=== PATIENT | female | born 1965 | race African-American/Black ===

== ENCOUNTER 2023-01-02 11:35 | Observation (INO) | payer OTHER ==
[~2023-01-02] VITALS: Ht 162.6 cm; Wt 79.4 kg
[2023-01-02] VITALS (7 sets, daily range): BP systolic 137–158; BP diastolic 77–98; PULSE 71–86; RESP 17–20; TEMP 97.1–99.9; O2SAT 95–100
[2023-01-02 12:10] LABS: BASOPHILS % 0.5 % (0.0-1.0); EOSINOPHILS % 0.2 % (0.0-6.0); HEMATOCRIT 39.9 % (34.2-44.1); HEMOGLOBIN 13.6 g/dL (12.0-16.0); LYMPHOCYTES # (AUTO) 1.2 (1.0-3.2); LYMPHOCYTES % 14.4 % (18.0-39.1); MEAN CORPUSCULAR HEMOGLOBIN 28.4 pg (28-32); MEAN CORPUSCULAR HGB CONC 34.1 g/dL (31-35); MEAN CORPUSCULAR VOLUME 83.3 fL (81-99); MONOCYTES # (AUTO) 0.6 (0.2-0.8); MONOCYTES % 7.5 % (4.4-11.3); NEUTROPHILS # (AUTO) 6.5 (2.1-6.9); PLATELET COUNT 158 x10e3/uL (140-360); RED BLOOD COUNT 4.79 x10e6/uL (3.6-5.1); RED CELL DISTRIBUTION WIDTH 13.9 % (11.7-14.4)
[2023-01-02 12:25] LABS: INR 0.97; PROTHROMBIN TIME 13.4 seconds (11.9-14.5)
[2023-01-02 12:26] LABS: PARTIAL THROMBOPLASTIN TIME 30.1 seconds (23.8-35.5)
[2023-01-02 12:35] LABS: ALANINE AMINOTRANSFERASE 28 IU/L (0-55); ALBUMIN 3.4 g/dL (3.5-5.0); ALBUMIN/GLOBULIN RATIO 0.7 (0.8-2.0); ALKALINE PHOSPHATASE 57 IU/L (40-150); ANION GAP 13.9 mmol/L (8-16); BLOOD UREA NITROGEN 11 mg/dL (7-26); BUN/CREATININE RATIO 13 (6-25); CALCIUM 9.2 mg/dL (8.4-10.2); CARBON DIOXIDE 27 mmol/L (22-29); CHLORIDE 98 mmol/L (98-107); CREATINE KINASE 92 IU/L (29-168); CREATININE, SERUM 0.82 mg/dL (0.57-1.11); GLUCOSE 137 mg/dL (74-118); LIPASE 25 U/L (8-78); SODIUM 136 mmol/L (136-145)
[2023-01-02 12:36] LABS: POTASSIUM 2.9 mmol/L (3.5-5.1)
[2023-01-02 13:17] LABS: CLARITY,URINE CLOUDY (CLEAR); COLOR,URINE YELLOW (YELLOW); LEUKOCYTE ESTERASE ,URINE LARGE (NEGATIVE)
[2023-01-02 13:18] LABS: KETONES,URINE NEGATIVE (NEGATIVE); NITRITE,URINE POSITIVE (NEGATIVE); PROTEIN,URINE DIPSTICK 2+ (NEGATIVE); URINE UROBILINOGEN 0.2 mg/dL (0.2 - 1)
[2023-01-02 13:35] LABS: WBC,URINE (MAN) >50 /HPF (0-5)
[2023-01-02 13:36] LABS: BACTERIA,URINE MANY /HPF; EPITHELIAL CELLS,URINE FEW /LPF
[2023-01-02] MEDS ORDERED: POTASSIUM CHLORIDE 20 MEQ TAB CR PO ONE (14:00)
[2023-01-02] MEDS: SODIUM CHLORIDE 0.9% 1000ML 1,000 ML IV SCH ×2 (17:13→22:15)
[2023-01-02] MEDS ORDERED: NIFEDIAC CC60 MG PO (17:30)
[2023-01-02] MEDS ORDERED: LOSARTAN POTAS100 MG PO (17:30)
[2023-01-02] MEDS ORDERED: CHLORTHALIDONE25 MG PO (17:30)
[2023-01-02] MEDS ORDERED: ASPIRIN81 MG PO (17:30)
[2023-01-02] MEDS ORDERED: MELOXICAM7.5 MG PO (17:30)
[2023-01-02] MEDS ORDERED: PRAVASTATIN SOD40 MG PO (17:30)
[2023-01-02] MEDS ORDERED: MELOXICAM 7.5 MG TAB PO PRN (18:45)
[2023-01-02] MEDS ORDERED: POLYETHYLENE GLYCOL 3350 17 GM PACK PO ONE (19:30)
[2023-01-02] MEDS ORDERED: FAMOTIDINE 20 MG TAB PO PRN (20:15)
[2023-01-02] MEDS ORDERED: MELATONIN 5 MG TABLET PO PRN (20:15)
[2023-01-02] MEDS ORDERED: ACETAMINOPHEN 325 MG TAB PO PRN (20:15)
[2023-01-02] MEDS ORDERED: SIMVASTATIN 20 MG TAB PO SCH (21:00)
[2023-01-02] MEDS ORDERED: NIFEDIPINE CR 30 MG TAB PO ONE (23:15)
[2023-01-02] MEDS ORDERED: LOSARTAN POTASSIUM 100 MG TAB PO ONE (23:15)
[2023-01-03] VITALS (7 sets, daily range): BP systolic 99–163; BP diastolic 72–89; PULSE 60–80; RESP 16–18; TEMP 97.5–99.3; O2SAT 96–100
[2023-01-03] MEDS: ACETAMINOPHEN 325 MG TAB PO PRN ×2 (02:34→15:43)
[2023-01-03 05:58] LABS: BASOPHILS # (AUTO) 0.1 (0.0-0.1); BASOPHILS % 0.7 % (0.0-1.0); EOSINOPHILS # (AUTO) 0.1 (0.0-0.4); EOSINOPHILS % 0.7 % (0.0-6.0); HEMATOCRIT 37.9 % (34.2-44.1); HEMOGLOBIN 12.9 g/dL (12.0-16.0); LYMPHOCYTES # (AUTO) 1.4 (1.0-3.2); LYMPHOCYTES % 19.2 % (18.0-39.1); MEAN CORPUSCULAR HEMOGLOBIN 28.7 pg (28-32); MEAN CORPUSCULAR VOLUME 84.4 fL (81-99); MONOCYTES # (AUTO) 0.8 (0.2-0.8); MONOCYTES % 10.6 % (4.4-11.3); NEUTROPHILS # (AUTO) 5.1 (2.1-6.9); NEUTROPHILS % 68.5 % (38.7-80.0); PLATELET COUNT 133 x10e3/uL (140-360); RED BLOOD COUNT 4.49 x10e6/uL (3.6-5.1); RED CELL DISTRIBUTION WIDTH 13.7 % (11.7-14.4)
[2023-01-03] MEDS: SODIUM CHLORIDE 0.9% 1000ML 1,000 ML IV SCH (06:19)
[2023-01-03 06:35] LABS: ALBUMIN 2.8 g/dL (3.5-5.0); ALBUMIN/GLOBULIN RATIO 0.7 (0.8-2.0); ANION GAP 11.9 mmol/L (8-16); CALCIUM 8.5 mg/dL (8.4-10.2); CREATININE, SERUM 0.75 mg/dL (0.57-1.11)
[2023-01-03 06:47] LABS: POTASSIUM 2.9 mmol/L (3.5-5.1)
[2023-01-03 06:51] LABS: CREATINE KINASE 74 IU/L (29-168)
[2023-01-03] MEDS ORDERED: POTASSIUM CHLORIDE 20 MEQ TAB CR PO ONE (08:30)
[2023-01-03] MEDS ORDERED: LOSARTAN POTASSIUM 100 MG TAB PO SCH (09:00)
[2023-01-03] MEDS ORDERED: CHLORTHALIDONE 25 MG TAB PO SCH ×2 (09:00)
[2023-01-03] MEDS ORDERED: NIFEDIPINE CR 30 MG TAB PO SCH (09:00)
[2023-01-03] MEDS ORDERED: ASPIRIN 81 MG CHEW TAB PO SCH (09:00)
[2023-01-03] MEDS ORDERED: SENNA-S TABLET PO SCH (09:00)
[2023-01-03 15:12] LABS: ANION GAP 13.6 mmol/L (8-16); CALCIUM 8.6 mg/dL (8.4-10.2); CREATININE, SERUM 0.78 mg/dL (0.57-1.11); POTASSIUM 3.6 mmol/L (3.5-5.1)
[2023-01-03] MEDS ORDERED: ENOXAPARIN SOD INJ 40 MG/0.4 ML SYR SC SCH (17:00)
[2023-01-03] MEDS ORDERED: NITROFURANTOIN MACROCRYSTALS 100 MG CAP PO SCH (17:00)
[2023-01-03] MEDS ORDERED: NITROFURANTOIN100 M1 PO (17:30)
== END 2023-01-03 18:40 | disposition home or self-care (01) ==
LOC: ER 11:38 → ERHOLD 14:15 → MED/SURG3 16:33
PROVIDERS: ADMIT Family Medicine Adult Medicine; ATTEND Family Medicine Adult Medicine
DX: R07.89 Other chest pain (principal); I25.10 Atherosclerotic heart disease of native coronary artery without angina pectoris; N30.90 Cystitis, unspecified without hematuria; J06.9 Acute upper respiratory infection, unspecified; E87.6 Hypokalemia; Z95.1 Presence of aortocoronary bypass graft; E78.5 Hyperlipidemia, unspecified
CPT/HCPCS: 0223U; 36415 ×2; 71045; 71046; 80048; 80053 ×2; 81001; 82550 ×2; 83690; 83880; 84484 ×2; 85025 ×2; 85379; 85610; 85730; 87086; 87186; 87400; 93005 ×2; 94799 ×2; 99284; G0378 ×2; J0696 ×2; J7030 ×2